=== PATIENT | male | born 1985 ===

== ENCOUNTER 2018-07-11 16:03 | Emergency (ER) | payer MEDICAID ==
[2018-07-11 16:09] VITALS: BMI 21.7
[2018-07-11 16:10] VITALS: BP 126/78; RESP 18; TEMP 97.4
[2018-07-11] MEDS ORDERED: Lidocaine 1% Inj (20ml) IJ STA (16:15)
[2018-07-11] MEDS ORDERED: Lidocaine 1% 5ml Abboject ONE (16:20)
[2018-07-11] MEDS ORDERED: Bacitracin 500 Units/gm Oint Foilpak UD ONE (16:55)
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
[2018-07-11 18:49] VITALS: PULSE 89; O2SAT 98
--- NOTE | 2018-07-12 08:27 | RAD ---
PROCEDURE: Right Hand Radiographs. HISTORY: punched wall - r/o fx COMPARISON: None. TECHNIQUE: 3 views obtained. FINDINGS: BONES: Normal. No fracture. JOINTS: Normal. No osteoarthritic changes. SOFT TISSUES: Normal. OTHER FINDINGS: None. IMPRESSION: Normal right hand radiographs.
--- NOTE | 2018-07-12 08:28 | RAD ---
PROCEDURE: Left Hand Radiographs. HISTORY: punched wall - r/o fx COMPARISON: None. TECHNIQUE: 3 views obtained. FINDINGS: BONES: Normal. No fracture. JOINTS: Normal. No osteoarthritic changes. SOFT TISSUES: Normal. OTHER FINDINGS: None. IMPRESSION: Normal left hand radiographs.
== END 2018-07-11 18:55 | disposition home or self-care (01) ==
LOC: ED 16:03
DX: S61.412A Laceration without foreign body of left hand, initial encounter (principal); S60.511A Abrasion of right hand, initial encounter; W22.09XA Striking against other stationary object, initial encounter